=== PATIENT | male | born 1980 | race Caucasian/White ===

== ENCOUNTER 2018-02-20 20:41 | Emergency (ER) | payer BC ==
[2018-02-20 20:57] VITALS: BP 113/73; PULSE 65; RESP 17; TEMP 98.4; O2SAT 97
[2018-02-20] MEDS ORDERED: Tdap Vaccine 0.5 ml Vial (10-64 yrs) IM ONE ×2 (21:16→21:33)
--- NOTE | 2018-02-20 21:45 | ED PDOC ---
HPI: Eye Injury/Pain Time Seen by Provider: 02/20/18 21:00 Chief Complaint (Nursing): Abnormal Skin Integrity Chief Complaint (Provider): Left Eye Injury History Per: Patient History/Exam Limitations: no limitations Onset/Duration Of Symptoms: Hrs Current Symptoms Are (Timing): Better Quality: "Pain" Associated Symptoms: denies: Decreased Vision, Discharge From Eye Additional Complaint(s): 38 year old male presents to the ER for an evaluation of his left upper eyelid. Patient states his cat scratched him accidentally on his L upper eyelid. He reports his cat is vaccinated and her vaccines are UTD. He denies eye pain, visual changes or discharge from his eye. PMD: No Family Provider Past Medical History Reviewed: Historical Data, Nursing Documentation, Vital Signs Vital Signs: Last Vital Signs Temp 98.4 F 02/20/18 20:54 Pulse 65 02/20/18 20:54 Resp 17 02/20/18 20:54 BP 113/73 02/20/18 20:54 Pulse Ox 97 02/20/18 20:54 - Medical History PMH: No Chronic Diseases - Surgical History Surgical History: No Surg Hx - Family History Family History: States: No Known Family Hx - Allergies Allergies/Adverse Reactions: Allergies Allergy/AdvReac Type Severity Reaction Status Date / Time shrimp Allergy SWELLING Verified 02/20/18 20:57 Review of Systems ROS Statement: Except As Marked, All Systems Reviewed And Found Negative Eyes: Positive for: Other (scratch on left eyelid). Negative for: Pain, Vision Change Physical Exam - Reviewed Nursing Documentation Reviewed: Yes Vital Signs Reviewed: Yes - Physical Exam Appears: Positive for: Non-toxic, No Acute Distress Head Exam: Positive for: ATRAUMATIC, NORMAL INSPECTION, NORMOCEPHALIC Skin: Positive for: Normal Color, Warm, Dry Eye Exam: Positive for: EOMI, PERRL, Other (no hyphema). Negative for: Normal appearance (on the left upper eyelid there is a linear superficial abrasion less than 1/2 cm ), Periorbital swelling, Periorbital tenderness, Conjunctival injection Lymphatic: Positive for: Other (no preauricular or postauricular or submandibular lymphadenopathy ) Neurologic/Psych: Positive for: Alert, Oriented (x3). Negative for: Motor/ Sensory Deficits - ECG O2 Sat by Pulse Oximetry: 97 (RA) Pulse Ox Interpretation: Normal Medical Decision Making Medical Decision Making: Time: 2115 Initial Plan --Tetanus 0.5ml --Reevaluation Abrasion cleaned and Bacitracin applied on it. Patient advised to follow up in ER if fever, rash or swollen lymph nodes occurs. Scribe Attestation: Documented by Subha Zacarias, acting as a scribe for Jorge Hart PA-C. Provider Scribe Attestation: All medical record entries made by the Scribe were at my direction and personally dictated by me. I have reviewed the chart and agree that the record accurately reflects my personal performance of the history, physical exam, medical decision making, and the department course for this patient. I have also personally directed, reviewed, and agree with the discharge instructions and disposition. Disposition - Clinical Impression Clinical Impression: Cat scratch - Patient ED Disposition Is Patient to be Admitted: No - Disposition Referrals: [facility] [place] [Outside] Disposition: Routine/Home Disposition Time: 21:16 Condition: STABLE Additional Instructions: GOYO OLSON, thank you for letting us take care of you today. Your provider was Khalida Bailon MD and you were treated for SCRATCHES LT EYE. The emergency medical care you received today was directed at your acute symptoms. If you were prescribed any medication, please fill it and take as directed. It may take several days for your symptoms to resolve. Return to the Emergency Department if your symptoms worsen, do not improve, or if you have any other problems. Please contact your doctor or call one of the physicians/clinics you have been referred to that are listed on the Patient Visit Information form that is included in your discharge packet. Bring any paperwork you were given at discharge with you along with any medications you are taking to your follow up visit. Our treatment cannot replace ongoing medical care by a primary care provider outside of the emergency department. Thank you for allowing the [facility] team to be part of your care today. If you had an X-Ray or CT scan: A Radiologist will review the ED reading if any change in treatment is needed we will contact you. If you had a blood, urine, or wound culture: It will take several days for the results, if any change in treatment is needed we will contact you. If you had an STI test: It will take 48 hours for the results. Please call after 1 week if you have not heard back. Instructions: Wound Care (DC) Forms: [facility] (Russian) Print Language: [id number]
== END 2018-02-20 22:07 | disposition home or self-care (01) ==
LOC: H.ER 20:41
DX: S05.92XA Unspecified injury of left eye and orbit, initial encounter (principal); W55.03XA Scratched by cat, initial encounter; Y92.89 Other specified places as the place of occurrence of the external cause